=== PATIENT | male | born 1980 | race Caucasian/White ===

== ENCOUNTER 2021-07-04 17:49 | Emergency (ER) | payer OTHER, SELFPAY ==
[2021-07-04 18:47] VITALS: BP 140/86; PULSE 57; RESP 18; TEMP 36.6; O2SAT 96; BMI 30.7
[2021-07-04] MEDS: Acetaminophen 325 MG TABLET 650 MG PO (18:52)
== END 2021-07-04 21:29 | disposition left against medical advice (07) ==
PROVIDERS: Emergency Provider Emergency Medicine
DX: S09.90XA Unspecified injury of head, initial encounter (principal); G44.309 Post-traumatic headache, unspecified, not intractable; W01.0XXA Fall on same level from slipping, tripping and stumbling without subsequent striking against object, initial encounter; Y93.9 Activity, unspecified; Y92.9 Unspecified place or not applicable; Y99.9 Unspecified external cause status
CPT/HCPCS: 99283